=== PATIENT | female | born 1995 | race American Indian/Alaskan Native ===

== ENCOUNTER 2017-05-01 08:22 | Emergency (ER) | payer SELFPAY ==
[2017-05-01 08:42] VITALS: BP 130/73
[2017-05-01 09:12] LABS: Basophils % (Auto) 0.5 % (0.0-1.8); Eosinophils % (Auto) 0.5 % (0.0-4.3); Hematocrit 26.1 % (30.3-42.9); Mean Corpuscular HGB Conc 31 % (30-34); Platelet Count 435 K/mm3 (140-440); Red Cell Distribution Width 17.8 % (13.2-15.2); White Blood Count 7.2 K/mm3 (4.5-11.0)
[2017-05-01 09:13] LABS: Mean Corpuscular Hemoglobin 21 pg (28-32); Mean Corpuscular Volume 67 fl (79-97)
[2017-05-01 09:17] LABS: Anion Gap 17 mmol/L; BUN/Creatinine Ratio 24; Blood Urea Nitrogen 12 mg/dL (7-17); Calcium 9.1 mg/dL (8.4-10.2); Carbon Dioxide 25 mmol/L (22-30); Chloride 102.2 mmol/L (98-107); Glucose 98 mg/dL (65-100); Potassium 4.7 mmol/L (3.6-5.0); Sodium 139 mmol/L (137-145)
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
--- NOTE | 2017-05-01 12:17 | XRay Report ---
ROUTINE CHEST, TWO VIEWS: HISTORY: chest pain. The trachea, heart, mediastinal contour, lung ruiz and bony thorax are unremarkable. IMPRESSION: Unremarkable chest x-ray.
== END 2017-05-01 12:32 | disposition home or self-care (01) ==
LOC: ED 08:22
DX: M94.0 Chondrocostal junction syndrome [Tietze] (principal); R07.89 Other chest pain; Z86.73 Personal history of transient ischemic attack (TIA), and cerebral infarction without residual deficits
CPT/HCPCS: 36415; 71020; 80048; 84484; 84703; 85025; 93005; 93010